=== PATIENT | male | born 1995 | race Caucasian/White ===

== ENCOUNTER 2017-04-02 17:58 | Emergency (ER) | payer OTHER ==
[2017-04-02 18:14] VITALS: BP 122/61
--- NOTE | 2017-04-02 19:05 | UC ---
Cardiac HPI - HPI Summary HPI Summary: 22 y/o male cc: chest pain has been off and on for the past one year, came in today because the chest pain was more intense , + sob located mid chest , no radiation of the pain , nothing makes the pain worse , may improve with physical activity ' no fever, no chills, no diaphoresis - History of Current Complaint Chief Complaint: UCChestPain Stated Complaint: CHEST PAIN Time Seen by Provider: 04/02/17 18:04 Hx Obtained From: Patient Onset/Duration: Gradual Onset, Lasting Weeks - past one year, Still Present, Worse Since - today Timing: Constant Initial Severity: Mild Current Severity: Moderate Chest Pain Location: Mid Sternal Character: Tightness Aggravating: Nothing Alleviating: Exertion Associated Signs & Symptoms: Positive: Chest Pain, SOB. Negative: Vision Changes, Anxiety, Recent Stress, Headaches, Numbness, Tingling, Weakness, Dizziness, Swelling, Syncope, Fever, Diaphoresis, Nausea/Vomiting, Palpitations , Cough, Hemoptysis, Back Pain, Abdominal Pain, Calf Pain/Swelling - Allergy/Home Medications Allergies/Adverse Reactions: Allergies Allergy/AdvReac Type Severity Reaction Status Date / Time No Known Allergies Allergy Verified 04/02/17 18:05 Home Medications: Home Medications Acetaminophen TAB* [Tylenol TAB*] 1,000 mg PO Q4H PRN 04/02/17 [History Confirmed 04/02/17] Albuterol 2.5MG/3ML (0.083%)* [Ventolin 2.5 MG/3 ML NEB.PETE*] 2.5 mg INH Q4H PRN 04/02/17 [History Confirmed 04/02/17] PMH/Surg Hx/FS Hx/Imm Hx Previously Healthy: Yes - Surgical History Surgical History: None - Family History Known Family History: Negative: Diabetes - Social History Alcohol Use: Weekly Substance Use Type: None Smoking Status (MU): Never Smoked Tobacco Review of Systems Constitutional: Negative Skin: Negative Eyes: Negative ENT: Negative Cardiovascular: Chest Pain Is Patient Immunocompromised?: No All Other Systems Reviewed And Are Negative: Yes Physical Exam Triage Information Reviewed: Yes Appearance: Well-Appearing, No Pain Distress, Well-Nourished Vital Signs: Initial Vital Signs Temp 98 F 04/02/17 18:06 Pulse 79 04/02/17 18:06 Resp 20 04/02/17 18:06 BP 122/61 04/02/17 18:06 Pulse Ox 98 04/02/17 18:06 Vital Signs Reviewed: Yes Eyes: Positive: Conjunctiva Clear ENT: Positive: Normal ENT inspection, Hearing grossly normal, Pharynx normal Neck exam: Normal Neck: Positive: Supple, Nontender, No Lymphadenopathy Respiratory: Positive: Chest non-tender, Lungs clear, Normal breath sounds, No respiratory distress Cardiovascular: Positive: RRR, No Murmur, Pulses Normal Abdominal Exam: Normal Abdomen Description: Positive: Nontender, Soft. Negative: CVA Tenderness (R), CVA Tenderness (L), Distended, Guarding Bowel Sounds: Positive: Present Skin Exam: Normal - Clinical Impression Provider Diagnoses: chest pain Discharge - Discharge Plan Condition: Stable Disposition: HOME Prescriptions: Ibuprofen TAB* [Motrin TAB* 600 MG] 600 mg PO Q8H #21 tab Pantoprazole TAB (NF) [Protonix TAB (NF)] 40 mg PO DAILY #30 tab Patient Education Materials: Chest Pain (ED) Referrals: Scout Mayo MD [Medical Doctor] - As Soon As Possible Non Staff,Doctor [Primary Care Provider] - Additional Instructions: cont. with rest, ibuprofen 600 mg 3 x per day EKG ? pericarditis will make a referral to Manager Of Purchasing for evaluation go to ED if increase in pain and if your are short of breath
== END 2017-04-02 19:15 | disposition home or self-care (01) ==
LOC: UCCORT 17:58
DX: R07.89 Other chest pain (principal)
CPT/HCPCS: 93005; 99202; G0463

== ENCOUNTER 2017-04-20 18:18 | Emergency (ER) | payer OTHER ==
[2017-04-20 18:39] VITALS: BP 139/79
--- NOTE | 2017-04-20 19:14 | UC ---
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 Knee buckled during a tackle and hit face at the same time. Has not been able to run on it. - History of Current Complaint Chief Complaint: UCEye Stated Complaint: RIGHT EYE LACERATION/RIGHT KNEE INJURY Time Seen by Provider: 04/20/17 19:07 Hx Obtained From: Patient Onset/Duration: Sudden Onset - this afternoon, Lasting Hours - 3, Still Present Severity Initially: Moderate Severity Currently: None Location Of Injury: Right knee, right upper eyelid Pain Intensity: 0 Character: Sharp Aggravating Factor(s): Weight Bearing, Stairs Alleviating Factor(s): Rest Associated Signs And Symptoms: Negative: Swelling Able to Bear Weight: Yes Related History: Similar Episode/Dx as - Risk Factors Septic Arthritis Risk Factor: Negative Gout Risk Factor: Negative - Allergies/Home Medications Allergies/Adverse Reactions: Allergies Allergy/AdvReac Type Severity Reaction Status Date / Time Shellfish Allergy Allergy Abdominal Verified 04/20/17 18:40 Pain amoxicillin, penicillin Allergy Unknown Uncoded 04/20/17 18:39 Reaction Details Home Medications: Home Medications Ibuprofen TAB* [Motrin TAB* 600 MG] 400 mg PO Q8H 04/20/17 [History Confirmed ] PMH/Surg Hx/FS Hx/Imm Hx Previously Healthy: Yes - Surgical History Surgical History: None - Family History Known Family History: Positive: Hypertension Negative: Cardiac Disease, Diabetes - Social History Occupation: Student Lives: Alone Alcohol Use: Weekly Substance Use Type: None Smoking Status (MU): Never Smoked Tobacco Have You Smoked in the Last Year: No - Immunization History Most Recent Tetanus Shot: unknown Review of Systems Skin: Other - laceration right eye Musculoskeletal: Arthralgia - right knee Is Patient Immunocompromised?: No All Other Systems Reviewed And Are Negative: Yes Physical Exam Triage Information Reviewed: Yes Appearance: Well-Appearing, Well-Nourished, Pain Distress - mild/ moderate Vital Signs: Initial Vital Signs Temp 98.9 F 04/20/17 18:30 Pulse 72 04/20/17 18:30 Resp 16 04/20/17 18:30 BP 139/79 04/20/17 18:30 Vital Signs Reviewed: Yes Eyes: Positive: Conjunctiva Clear ENT: Positive: Pharynx normal, Nasal congestion, TMs normal - with some retraction Knee Pain Course/Dx - Differential Dx/Diagnosis Differential Diagnosis/HQI/PQRI: Sprain, Strain, Tendonitis Provider Diagnoses: eye laceration. right patellar tendonitis Discharge - Discharge Plan Condition: Stable Disposition: HOME Patient Education Materials: Laceration (ED), Knee Pain (ED), Skin Adhesive Care (ED), Patellar Tendinitis (ED) Referrals: Non Staff,Doctor [Primary Care Provider] - Bang HUFF MS,Darryl Jonas [Medical Doctor] - 3 Days (for patellar tendon strain)
== END 2017-04-20 20:16 | disposition home or self-care (01) ==
LOC: UCCORT 18:18
DX: S01.111A Laceration without foreign body of right eyelid and periocular area, initial encounter (principal); M76.51 Patellar tendinitis, right knee; X58.XXXA Exposure to other specified factors, initial encounter; Y93.63 Activity, rugby; Y92.9 Unspecified place or not applicable
CPT/HCPCS: 12011; 99212; G0463

== ENCOUNTER 2018-09-10 13:11 | Emergency (ER) | payer OTHER ==
[2018-09-10 14:20] VITALS: BP 103/59
--- NOTE | 2018-09-10 15:03 | UC ---
Elbow Pain - HPI Summary HPI Summary: Pt presents with c/o right elbow pain s/p slipping at work on 09/06/18 and hitting right elbow on tile surface. Also, c/o rash across of bilateral facial cheeks that is mild erythematous and flaky, dry skin. - History of Current Complaint Chief Complaint: UCUpperExtremity Stated Complaint: RIGHT ELBOW INJURY - W/C Time Seen by Provider: 09/10/18 14:18 Hx Obtained From: Patient Onset/Duration: Days - slipped on 09/06/18 Severity Initially: Moderate Severity Currently: Mild Pain Intensity: 0 Location Of Pain: Is Discrete @ - right elbow Character: Dull, Aching Aggravating Factor(s): Movement Alleviating Factor(s): Rest Associated Signs And Symptoms: Positive: Negative - Allergies/Home Medications Allergies/Adverse Reactions: Allergies Allergy/AdvReac Type Severity Reaction Status Date / Time shellfish derived Allergy Abdominal Verified 09/10/18 14:15 Pain amoxicillin, penicillin Allergy Unknown Uncoded 09/10/18 14:15 Reaction Details PMH/Surg Hx/FS Hx/Imm Hx Previously Healthy: Yes - Surgical History Surgical History: None - Family History Known Family History: Positive: Hypertension Negative: Cardiac Disease, Diabetes - Social History Occupation: Student Lives: With Family Alcohol Use: Occasionally Substance Use Type: None Smoking Status (MU): Never Smoked Tobacco Have You Smoked in the Last Year: No - Immunization History Most Recent Tetanus Shot: unknown Review of Systems All Other Systems Reviewed And Are Negative: Yes Constitutional: Positive: Negative Skin: Positive: Rash - face Eyes: Positive: Negative ENT: Positive: Negative Respiratory: Positive: Negative Cardiovascular: Positive: Negative Gastrointestinal: Positive: Negative Genitourinary: Positive: Negative Motor: Positive: Negative Neurovascular: Positive: Negative Musculoskeletal: Positive: Arthralgia - right elbow Neurological: Positive: Negative Psychological: Positive: Negative Is Patient Immunocompromised?: No Physical Exam Triage Information Reviewed: Yes Appearance: Well-Appearing Vital Signs: Initial Vital Signs Temp 98.5 F 09/10/18 14:15 Pulse 74 09/10/18 14:15 Resp 16 09/10/18 14:15 BP 103/59 09/10/18 14:15 Pulse Ox 99 09/10/18 14:15 Vital Signs Reviewed: Yes Eye Exam: Normal ENT Exam: Normal Dental Exam: Normal Neck exam: Normal Respiratory Exam: Normal Respiratory: Positive: No respiratory distress Musculoskeletal Exam: Normal Musculoskeletal: Positive: Other: - c/o right elbow pain wiht movement Neurological Exam: Normal Psychological Exam: Normal Skin: Positive: Rashes - pin prick, erythematous dry flaky rash, across bridge of nose and bialteral facial cheeks. ~ 1 cm Wide an d2 cm in length. Nothing makes it worse or has not tried anything to make it better. Diagnostics - Radiology No standard instances Radiology Interpretation Completed By: Radiologist - IMPRESSION: No radiographically apparent fracture, dislocation or large intra-articular effusion. Elbow Pain Course/Dx - Differential Dx/Diagnosis Differential Diagnosis/HQI/PQRI: Contusion, Fracture (Closed) Provider Diagnosis: Contusion of elbow, right, Rash of face Discharge - Sign-Out/Discharge Documenting (check all that apply): Patient Departure All imaging exams completed and their final reports reviewed: Yes - Discharge Plan Condition: Stable Disposition: HOME Patient Education Materials: Acute Rash (ED), Contusion in Adults (ED), Arthralgia (ED) Referrals: Care [facility] [Outside] No Primary Care Phys,NOPCP [Primary Care Provider] - Additional Instructions: If symptoms do not improve with application of unscented lotion to rash, please follow up with your PCP or return to clinic for further testing. - Billing Disposition and Condition Condition: STABLE Disposition: Home
== END 2018-09-10 15:12 | disposition home or self-care (01) ==
LOC: UCCORT 13:11
DX: S50.01XA Contusion of right elbow, initial encounter (principal); R21 Rash and other nonspecific skin eruption; Z91.013 Allergy to seafood; Z88.0 Allergy status to penicillin; W01.198A Fall on same level from slipping, tripping and stumbling with subsequent striking against other object, initial encounter; Y92.9 Unspecified place or not applicable
CPT/HCPCS: 99211; G0463